=== PATIENT | male | born 1990 | race African-American/Black ===

== ENCOUNTER 2023-09-29 01:20 | Emergency (ER) | payer SELFPAY ==
[2023-09-29] MEDS ORDERED: Ibuprofen 200 MG TAB ONE (02:11)
[2023-09-29] MEDS ORDERED: Acetaminophen 500 MG TAB ONE (02:11)
[2023-09-29 03:11] LABS: SARS-CoV-2 NAA Rapid Test Not Detected (NotDetected)
== END 2023-09-29 03:20 | disposition home or self-care (01) ==
LOC: CSHERS 01:20
DX: J10.1 Influenza due to other identified influenza virus with other respiratory manifestations (principal); F17.210 Nicotine dependence, cigarettes, uncomplicated; Z20.822 Contact with and (suspected) exposure to COVID-19
CPT/HCPCS: 71045

== ENCOUNTER 2024-11-05 12:55 | Emergency (ER) | payer OTHER, SELFPAY | END 2024-11-05 16:16 | disposition home or self-care (01) | LOC: CSHERS 12:55 | DX: K04.7 Periapical abscess without sinus (principal); J02.9 Acute pharyngitis, unspecified; F17.210 Nicotine dependence, cigarettes, uncomplicated; Z55.0 Illiteracy and low-level literacy | CPT/HCPCS: 99282 ==

== ENCOUNTER 2024-11-27 14:43 | Emergency (ER) | payer OTHER ==
[2024-11-27] MEDS ORDERED: Ibuprofen 200 MG TAB ONE (16:27)
[2024-11-27] MEDS ORDERED: Acetaminophen 500 MG TAB ONE (18:14)
== END 2024-11-27 18:20 | disposition home or self-care (01) ==
LOC: CSHERS 14:43
DX: S20.211A Contusion of right front wall of thorax, initial encounter (principal); S16.1XXA Strain of muscle, fascia and tendon at neck level, initial encounter; W13.0XXA Fall from, out of or through balcony, initial encounter
CPT/HCPCS: 72125